=== PATIENT | male | born 1935 | race Caucasian/White ===

== ENCOUNTER 2020-06-25 14:41 | Emergency (ER) | payer BC, SELFPAY ==
[~2020-06-25] VITALS: Ht 157.5 cm; Wt 58.5 kg
[2020-06-25 14:53] VITALS: BP 150/90
--- NOTE | 2020-06-25 14:53 | NUR ---
PT CONCERNED FOR COVID, EXPOSED TO FAMILY LIVING AT HOME. FAMILY POSITIVE COVID. PT PRESENTS EUPNIC,VSS,AMBULATORY,A/OX4. NO DISTRESS. PER PT ONLY COUGH AND REQUESTING TO BE TESTED FOR COVID. HX HDL,THYROID,PROSTATE PLACED IN TENT
--- NOTE | 2020-06-25 15:18 | NUR ---
PA AT TENT
--- NOTE | 2020-06-25 15:35 | NUR ---
covid swab obtained in the tent and sent to the lab.
[2020-06-25 15:54] VITALS: BP 144/85
--- NOTE | 2020-06-25 15:54 | NUR ---
Patient discharged with v/s stable. Written and verbal after care instructions given and explained. Patient alert, oriented and verbalized understanding of instructions. Ambulatory with steady gait. All questions addressed prior to discharge. ID band removed. Patient advised to follow up with PMD. Rx of Zofran and Codein Phosphate/Promethazine Hydrochloride given. Patient educated on indication of medication including possible reaction and side effects. Opportunity to ask questions provided and answered.
== END 2020-06-25 15:54 | disposition home or self-care (01) ==
LOC: MED 14:41
DX: U07.1 COVID-19 (principal); E78.00 Pure hypercholesterolemia, unspecified; E07.9 Disorder of thyroid, unspecified; Z98.890 Other specified postprocedural states
CPT/HCPCS: 99283; U0003